=== PATIENT | female | born 2000 | race Caucasian/White ===

== ENCOUNTER 2024-02-08 06:20 | Day surgery (SDC) | payer BC, OTHER ==
[2024-02-07 16:12] LABS: Absolute Basophils 0.1 K/uL (0-0.5); Absolute Eosinophils 0.1 K/uL (0-0.5); Absolute Lymphocytes (CBC) 2.8 K/uL (0.7-4.9); Absolute Monocytes 0.6 K/uL (0.1-1.3); Absolute Neutrophil 2.6 K/uL (1.8-8.0); Basophils % 1.1 % (0-1.3); Eosinophils % 1.3 % (0-4.4); Hematocrit 34.9 % (36.0-45.0); Hemoglobin 11.6 g/dL (12.0-15.0); Lymphocytes % 45.6 % (15.3-44.8); MCH 27.7 pg (27.0-35.0); MCHC 33.1 g/dL (32.0-36.0); MCV 83.7 fL (80-100); MPV 9.1 fL (7.6-11.3); Monocytes % 9.3 % (3.3-12.3); Neutrophils % 42.7 % (41.7-73.7); Platelets 314 thou/uL (152-406); RBC Red Blood Cell Count 4.17 M/uL (3.86-4.86); Red Cell Distribution Width 14.5 % (12.1-15.2)
[2024-02-07 16:28] LABS: Albumin 3.8 g/dL (3.4-5.0); Anion Gap 9.4 mEq/L (5.0-15.0); Bilirubin Direct 0.2 mg/dL (0-0.2); Bilirubin Indirect, Calculated 0.2 mg/dL (0.2-0.8); Bilirubin Total 0.4 mg/dL (0.2-1.0); Globulin 3.8 g/dL (2.3-3.5); Potassium 4.4 mEq/L (3.5-5.1); Protein, Total 7.6 g/dL (6.4-8.2)
[2024-02-08] MEDS: Ringers Lactate 1,000 ML IV ONE (06:45)
[2024-02-08] MEDS: CEFOXITIN SODIUM 1 GM/VIAL ONE (07:30)
[2024-02-08] MEDS ORDERED: MIDAZOLAM HCL 2 MG/2 ML INJ ONE (07:30)
[2024-02-08] MEDS ORDERED: dexAMETHasone 4 MG/ML VIAL ONE ×2 (07:35→07:49)
[2024-02-08] MEDS ORDERED: ROCURONIUM 50 MG/5 ML VIAL IV ONE (07:35)
[2024-02-08] MEDS ORDERED: ONDANSETRON 4 MG/2 ML VIAL ONE (07:35)
[2024-02-08] MEDS ORDERED: propofoL 200 MG/20 ML VIAL IV ONE (07:35)
[2024-02-08] MEDS ORDERED: LIDOCAINE 1% MPF 5 ML VIAL ONE (07:35)
[2024-02-08] MEDS ORDERED: FENTANYL CITR 100 MCG/2 ML ONE (07:35)
[2024-02-08] MEDS ORDERED: KETOROLAC 30 MG/ML INJ ONE (07:49)
--- NOTE | 2024-02-08 08:16 | P.BOP ---
Preoperative diagnosis: acute cholecystitis, symptomatic cholelithiasis, RUQ abd pain Postoperative diagnosis: same Primary procedure: Laparoscopic cholecystectomy Estimated blood loss: <10cc Specimen: gb Findings: as above Anesthesia: General Complications: None Transferred to: Recovery Room Condition: Good
[2024-02-08 08:36] VITALS: O2SAT 100
[2024-02-08] MEDS: ONDANSETRON 4 MG/2 ML VIAL ONE (08:45)
[2024-02-08] MEDS: FENTANYL CITR 100 MCG/2 ML ONE (08:47)
[2024-02-08 09:07] VITALS: TEMP 97
[2024-02-08] MEDS: CODEINE 30MG/APAP 300MG TAB ONE (09:20)
[2024-02-08 10:45] VITALS: BP 125/80
== END 2024-02-08 09:50 | disposition home or self-care (01) ==
LOC: OR 06:20
PROVIDERS: ATTEND Surgery
PROC: 0FT44ZZ Resection of Gallbladder, Percutaneous Endoscopic Approach (ICD-10-PCS; principal; 2024-02-08 07:30)
DX: K80.10 Calculus of gallbladder with chronic cholecystitis without obstruction (principal)
CPT/HCPCS: 85025; 80048; 36415; 84703; 80076; 88304; 83690; 47562; J2704; J1100; J2001; J2250; J3010 ×2; J0694; J2405 ×2; J7120